=== PATIENT | male | born 1935 | race Caucasian/White ===

== ENCOUNTER 2018-06-25 14:35 | Inpatient (IN) ==
[2018-06-26] MEDS: Primidone 50 MG TABLET PO SCH (21:45)
[2018-06-26] MEDS: *HR* HYDROcodone/Acet 10/325 mg TABLET PO PRN (21:46)
[2018-06-27] MEDS: *HR* Enoxaparin 40 MG/0.4 ML SYRINGE SQ SCH ×2 (05:56→18:01)
[2018-06-27] MEDS: *HR* HYDROcodone/Acet 10/325 mg TABLET PO PRN ×3 (05:56→19:50)
[2018-06-27 07:06] LABS: Basophils % 0.6 %; Eosinophils # 0.5 K/mcL (0.0-0.6); Eosinophils % 6.8 %; Hematocrit 25.6 % (37.5-50.1); Hemoglobin 8.5 g/dL (12.9-16.9); Immature Granulocytes % 0.7 % (0-4); Lymphocytes % 13.6 %; Mean Corpuscular HGB Conc 33.2 g/dL (31.6-35.5); Mean Corpuscular Hemoglobin 33.5 pg (28.0-33.3); Mean Corpuscular Volume 100.8 fL (83.0-100.0); Monocytes # 0.8 K/mcL (0.0-1.3); Monocytes % 10.6 %; Neutrophils # 4.8 K/mcL (1.6-8.9); Platelet Count 132 K/mcL (140-400); Red Blood Count 2.54 M/mcL (4.19-5.50); Red Cell Distribution Width 17.1 % (11.5-14.5); Segmented Neutrophils % 67.7 %
[2018-06-27 07:07] LABS: INR 1.2; Prothrombin Time 13.4 Seconds (9.4-12.1)
[2018-06-27 07:16] LABS: Activated Partial Thrombo Time 32.8 Seconds (26.0-36.0)
[2018-06-27 07:27] LABS: BUN/Creatinine Ratio 21 (6-26); Blood Urea Nitrogen 21 mg/dL (8-23); Calcium 8.4 mg/dL (8.6-10.3); Carbon Dioxide 26 mEq/L (23-29); Chloride 103 mEq/L (98-107); Glucose 112 mg/dL (70-105); Osmolality,Calculated 280 (280-300); Potassium 4.2 mEq/L (3.5-5.1); Sodium 133 mEq/L (136-145); eGFR For African Americans > 60 (> 60); eGFR For Non-African Americans > 60 (> 60)
[2018-06-27] MEDS: ICAPS AREDS PO SCH ×2 (09:00→21:08)
[2018-06-27] MEDS: Multivit/Ca/Min/Fe/FA 1 TAB TABLET PO SCH (09:00)
--- NOTE | 2018-06-27 11:10 | Internal Med History&Physical ---
Date of Encounter: 06/27/18 Time of Encounter: 11:06 Assessment and Plan (1) Status post total hip replacement, right Current visit: Yes Status: Acute Patient has a right THR with surgical incision appears healthy and intact. No echymosis or erythema. Moderate amount of edema to hips and bilateral lower exremities. Progressing well with PT/OT. Pain well managed with current meds. Continue with current plan of care. (2) H/O aortic valve replacement Current visit: Yes Status: Chronic No acute issues. Patient does continue to have moderate amount of bilateral pedal edema. Denies any chest palpitations or discomforts. Denies any dyspnea. We will continue with current medications. Vital signs are stable. (3) Meniere disease Current visit: Yes Status: Chronic No acute issues. Patient denies any dizziness. Patient does have unsteady gait. We will continue with current medications. Qualifiers: Laterality: unspecified laterality Qualified Code(s): H81.09 - Meniere's disease, unspecified ear (4) Anemia Current visit: Yes Status: Chronic Hemoglobin is 8.5. We will continue to monitor with serial labs. Vital signs stable Qualifiers: Anemia type: unspecified type Qualified Code(s): D64.9 - Anemia, unspecified Internal Medicine - H&P: HPI Chief complaint: right hip replacement Admitted From: Intrahospital Transfer Plans for Post Hospital Care: Home History of present illness: Mr. Gandhi is a 83 year old male who was transfered from an [facility] hospital after having a right total hip replacement on 06/23/2018. Patient's surgical recovery at Hospital uneventful, except for issues with urinary retention. Patient experienced urinary retention and difficulty and having Muñiz catheter replaced. Urology was consulted and was able to place a Muñiz catheter which is to remain in place still patient does follow-up in office with urology after discharge. Patient was transferred to this facility for rehabilitation due to deconditioning secondary to surgery. Patient is also had a left total hip replacement in May. Patient currently denies any discomforts. Right hip surgical incision remains intact with dressing appearing dry. Moderate amount of edema noted to right hip and bilateral legs. No ecchymosis or erythema noted. Patient noted to be able to bear weight on right leg, but noted moderate instability of gait, require use of walker. Patient does have Hx of Menieres Disease. Patient states that current pain medications have been effective. Denies any shortness of breath or other discomforts. Past Med Surg Social Fam HX - Past Medical History Medical history: aortic aneurysm, arthritis, atrial fibrillation, DVT, osteoporosis, other Additional medical history: menieres disease, mitral valve stenosis, ascending aortic aneurysm, mitral valve replacement. boderline macular degeneration/ glaucoma Psychiatric history: anxiety - Past Surgical History Surgical History: herniorrhaphy, knee replacement Additional surgical history: BOWEL RESECTION, LHC, AAA repair, valve replacement 10/18. PROSTATE SURGERY, Carpal Tunnel Bilateral, bilat knee replacements, bilat knee replacement, bilateral hips - Social History Smoking Status: Never smoker Smokeless Tobacco Status: No Alcohol use: occasionally Drug use: none - Family History Daughter Adopted: No Living Status: Still Living Internal Medicine - H&P: Meds Multivitamin [Multivitamins] 1 cap PO DAILY 08/14/17 [History] Primidone [Mysoline] 50 mg PO HS 08/14/17 [History] Cholecalciferol (D-3) [Vitamin D] 1,000 unit PO QPM 05/05/18 [History] Citalopram [CeleXA] 20 mg PO HS 05/05/18 [History] Metoprolol [Lopressor] 25 mg PO BID 05/05/18 [History] Tamsulosin [Flomax] 0.4 mg PO DAILY 05/05/18 [History] Vit A/Vit C/Vit E/Zinc/Copper [Icaps Areds Formula Dr Tablet] 1 tab PO BID 05/05 [History] Enoxaparin [Lovenox] 40 mg SQ Q12HR 10 Days #20 syringe 06/22/18 [Rx] HYDROcodone/Acet 5/325 mg [[place] 5-325 mg] 1 tab PO Q6H PRN 7 Days #28 tab 06/22 [Rx] Ferrous Sulfate [Iron] 325 mg PO DAILY 06/23/18 [History] Warfarin [Coumadin] 3.5 mg PO MOTUWEFRSA 06/23/18 [History] Warfarin [Coumadin] 5 mg PO SUTH 06/23/18 [History] 3 Allergy/AdvReac Type Severity Reaction Status Date / Time acetaminophen [From Percocet] AdvReac Irritable Verified 06/23/18 10:27 meperidine [From Demerol] AdvReac Nausea Verified 06/23/18 10:27 Oxycodone [From Percocet] AdvReac Irritable Verified 06/23/18 10:27 All Systems PM: A 10-system review of systems was performed and is negative for pertinent findings except as documented above in the HPI. - Constitutional Constitutional: no chills, no fever(s), no night sweats - EENT Eyes: no change in vision, no discharge, no pain, no photophobia Ears: no ear discharge, no ear pain, no tinnitus Nose, mouth and throat: no dysphagia, no nasal discharge, no neck pain, no sore throat - Cardiovascular Cardiovascular ROS IM: no chest pain, no diaphoresis, no dyspnea, no lightheadedness, no palpitations, no syncope - Respiratory Respiratory: no cough, no dyspnea, no wheezing, no excessive phlegm production - Gastrointestinal Gastrointestinal: no abdominal pain, no diarrhea, no hematemesis, no hematochezia, no melena, no nausea, no vomiting - Musculoskeletal Musculoskeletal ROS IM: no numbness, no tingling - Integumentary Integumentary IM: no rash, no unusual bruising - Neurological Neurological ROS: no confusion, no convulsions, no focal weakness, no numbness, no tingling, no tremor(s) - Hematologic/Lymphatic Hematologic/Lymphatic: no easy bruising - Constitutional Vitals: Temp Pulse Resp BP Pulse Ox 97.6 F 74 18 109/61 95 06/27/18 06:26 06/27/18 06:26 06/27/18 06:26 06/27/18 06:26 06/27/18 06:26 General appearance: Present: A&O X 3, pleasant - Head Head exam: Present: atraumatic, normocephalic - Eye Eye exam: Present: PERRL, conjuntiva pink, sclera anicteric Pupils: Present: PERRL - Neck Neck exam general surgery: Present: supple, trachea midline. Absent: lymphadenopathy - Respiratory Respiratory exam: Present: CTAB. Absent: accessory muscle use, rales, rhonchi, wheezes Additional comments: Lungs are diminished to bilateral bases, but otherwise clear. Respiratory effort appears relaxed - Cardiovascular Cardiovascular exam: Present: RRR, +S1, +S2. Absent: diastolic murmur, gallop, rubs, systolic murmur - GI/Abdominal GI/Abdominal exam: Present: normal bowel sounds, soft, no peritoneal signs. Absent: distended, tenderness - Additional comments: Muñiz catheter in place with clear yellow urine received. - Extremities Exam Extremities exam: Present: warm, radial pulses palpable and symmetrical. Absent : calf tenderness, cyanotic, pedal edema Additional comments: Right hip surgical incision is dry and intact. Alert amount of edema to bilateral hips and lower extremities. No ecchymosis or erythema noted to surgical site - Neurological Exam Neurological exam: Present: CN II-XII intact, oriented X3, no focal deficits. Absent: pronater drift, facial droop, speech deficit - Skin Skin exam: Present: dry, intact Internal Med - H&P Results - Labs CBC & Chem 7: 06/27/18 06:47 06/27/18 06:47 Labs: Short CBC 06/27/18 Range/Units 06:47 WBC 7.1 (4.3-11.1) K/mcL Hgb 8.5 L (12.9-16.9) g/dL Hct 25.6 L (37.5-50.1) % Plt Count 132 L (140-400) K/mcL Neutrophils # 4.8 (1.6-8.9) K/mcL BMP 06/27/18 06:47 Sodium 133 L Potassium 4.2 Chloride 103 Carbon Dioxide 26 BUN 21 Creatinine 1.01 Glucose 112 H Calcium 8.4 L - VTE Documentation of Mechanical Device: Graduated compression elastic hosiery
[2018-06-27] MEDS ORDERED: Warfarin perPT PO PRN (14:18)
[2018-06-27] MEDS ORDERED: *HR* Warfarin 5 MG TABLET PO ONE (18:00)
[2018-06-27] MEDS ORDERED: *HR* Warfarin 1 MG TABLET PO SCH (18:00)
[2018-06-27] MEDS: Cholecalciferol (D-3) 1,000 UNIT TABLET PO SCH (18:01)
[2018-06-27] MEDS: Primidone 50 MG TABLET PO SCH (19:50)
[2018-06-28] MEDS: *HR* HYDROcodone/Acet 10/325 mg TABLET PO PRN ×3 (06:05→18:00)
[2018-06-28] MEDS: *HR* Enoxaparin 40 MG/0.4 ML SYRINGE SQ SCH ×2 (06:05→18:00)
[2018-06-28] MEDS: Multivit/Ca/Min/Fe/FA 1 TAB TABLET PO SCH (07:40)
[2018-06-28] MEDS: ICAPS AREDS PO SCH ×2 (07:41→21:10)
[2018-06-28 09:55] LABS: INR 1.3; Prothrombin Time 14.4 Seconds (9.4-12.1)
--- NOTE | 2018-06-28 15:21 | Internal Med Progress Note ---
Date of Encounter: 06/28/18 Time of Encounter: 15:19 - Assessment and plan (1) Status post total hip replacement, right Current Visit: Yes Status: Acute Assessment and plan: PT/OT Mild anxiety and apprehension regarding using the hip Discussed at length with daughter and the patient to continue with PT OT (2) Thrombocytopenia Current Visit: Yes Status: Acute Assessment and plan: Acute versus chronic; unable to compare with the prior results Patient currently on Lovenox 40 mg subcutaneous every 12 hours as well as Coumadin We will monitor tomorrow with another CBC (3) Hyponatremia Current Visit: Yes Status: Acute Assessment and plan: Mild at 133; with normal osmolality We will monitor tomorrow (4) Anemia Current Visit: Yes Status: Chronic Assessment and plan: We will monitor tomorrow, most likely a combined iron deficiency and anemia of acute loss Continue iron Qualifiers: Anemia type: unspecified type Qualified Code(s): D64.9 - Anemia, unspecified (5) Incomplete emptying of bladder Current Visit: No Status: Acute Assessment and plan: Has been at least 2 days of indwelling catheter; patient is afebrile Per daughter; usually they leave the Muñiz at least 3-4 days before removing due to obstructive uropathy We will attempt to decrease narcotics, to decrease obstructive uropathy as well ; currently on [place] 10 every 4 hours for acute pain (6) Afib Current Visit: No Status: Chronic Assessment and plan: Patient currently on Lovenox to bridge with a subtherapeutic INR Continue Coumadin and monitoring INRs Qualifiers: Atrial fibrillation type: unspecified Qualified Code(s): I48.91 - Unspecified atrial fibrillation - Time Spent With Patient 25 - 35 minutes - Subjective Interval history: Per nursing: -Patient has changes on lung examination, most likely crackles Per patient: Minimal pain, sitting in a chair comfortable. Wearing nice clothing. 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 Patient denied any on review of systems - Constitutional Vitals: Temp Pulse Resp BP Pulse Ox 98.2 F 74 16 111/67 93 06/28/18 08:17 06/28/18 08:17 06/28/18 08:17 06/28/18 08:17 06/28/18 08:17 General appearance: Present: A&O X 3, pleasant Exam: Sitting on a wheelchair - Head Head exam: Present: atraumatic - Eye Eye exam: Present: EOMI. Absent: conjunctival injection - Neck Neck exam general surgery: Present: full ROM - Respiratory Respiratory exam: Present: rales. Absent: chest wall tenderness, decreased breath sounds, CTAB Additional comments: Patient appears to have rails on the basis of the right lung, but clear to auscultation left lung - Cardiovascular Cardiovascular exam: Present: RRR, +S1, +S2, systolic murmur Additional comments: Patient may suffer from a 3/6 systolic murmur - GI/Abdominal GI/Abdominal exam: Present: soft. Absent: diminished bowel sounds, firm, guarding, hepatomegaly - Extremities Exam Extremities exam: Absent: calf tenderness Additional comments: Patient has edema, unknown type giving compression stocking Upper and lower extremity strength is 5/5 Hip strength was not evaluated today - Neurological Exam Neurological exam: Present: oriented X3. Absent: speech deficit - Skin Skin exam: Present: dry, warm. Absent: abrasion, cyanosis Internal Medicine: Result - Labs CBC & Chem 7: 06/27/18 06:47 06/27/18 06:47 - ABG Interpretation ABG results: PT/INR, D-dimer PT 14.4 Seconds (9.4-12.1) H 06/28/18 09:30 - VTE Documentation of Mechanical Device: Graduated compression elastic hosiery Consult Discharge Plan - Plan Referrals: Toña Wright DO [Primary Care Provider] -
[2018-06-28] MEDS ORDERED: *HR* Warfarin 5 MG TABLET PO ONE (18:00)
[2018-06-28] MEDS: Cholecalciferol (D-3) 1,000 UNIT TABLET PO SCH (18:00)
[2018-06-28] MEDS: Primidone 50 MG TABLET PO SCH (21:11)
[2018-06-29] MEDS: *HR* HYDROcodone/Acet 10/325 mg TABLET PO PRN ×4 (04:02→20:29)
[2018-06-29] MEDS: *HR* Enoxaparin 40 MG/0.4 ML SYRINGE SQ SCH ×2 (04:03→17:35)
[2018-06-29 05:16] LABS: Hematocrit 24.5 % (37.5-50.1); Hemoglobin 8.2 g/dL (12.9-16.9); Mean Corpuscular HGB Conc 33.5 g/dL (31.6-35.5); Mean Corpuscular Hemoglobin 33.7 pg (28.0-33.3); Mean Corpuscular Volume 100.8 fL (83.0-100.0); Mean Platelet Volume 9.8 fL (9.4-12.4); Platelet Count 152 K/mcL (140-400); Red Blood Count 2.43 M/mcL (4.19-5.50); Red Cell Distribution Width 16.5 % (11.5-14.5)
[2018-06-29 05:18] LABS: INR 1.4; Prothrombin Time 15.8 Seconds (9.4-12.1)
[2018-06-29 05:31] LABS: BUN/Creatinine Ratio 21 (6-26); Blood Urea Nitrogen 18 mg/dL (8-23); Calcium 8.5 mg/dL (8.6-10.3); Carbon Dioxide 28 mEq/L (23-29); Chloride 102 mEq/L (98-107); Glucose 111 mg/dL (70-105); Osmolality,Calculated 281 (280-300); Potassium 4.2 mEq/L (3.5-5.1); Sodium 134 mEq/L (136-145); eGFR For African Americans > 60 (> 60); eGFR For Non-African Americans > 60 (> 60)
[2018-06-29] MEDS: Multivit/Ca/Min/Fe/FA 1 TAB TABLET PO SCH (08:32)
[2018-06-29] MEDS: ICAPS AREDS PO SCH ×2 (08:41→20:32)
--- NOTE | 2018-06-29 13:39 | Internal Med Progress Note ---
Date of Encounter: 06/29/18 Time of Encounter: 13:37 - Assessment and plan (1) Status post total hip replacement, right Current Visit: Yes Status: Acute Assessment and plan: PT/OT Mild anxiety and apprehension regarding using the hip (2) Thrombocytopenia Current Visit: Yes Status: Acute Assessment and plan: Acute versus chronic; unable to compare with the prior results; possibly reactive Would advise outpatient follow-up Patient currently on Lovenox 40 mg subcutaneous every 12 hours as well as Coumadin Continue frequent monitoring every other day (3) Hyponatremia Current Visit: Yes Status: Acute Assessment and plan: Normotonic hyponatremia; improved from 133-134 Continue to monitor; patient might be on some medication that can cause this including SSRIs (4) Anemia Current Visit: Yes Status: Chronic Assessment and plan: Most likely combined type of anemia; macrocytic Qualifiers: Anemia type: unspecified type Qualified Code(s): D64.9 - Anemia, unspecified (5) Incomplete emptying of bladder Current Visit: No Status: Acute Assessment and plan: Muñiz daily 3 Per daughter; usually they leave the Muñiz at least 3-4 days before removing due to obstructive uropathy We will attempt to decrease narcotics, to decrease obstructive uropathy as well ; currently on [place] 10 every 4 hours for acute pain (6) Afib Current Visit: No Status: Chronic Assessment and plan: Patient currently on Lovenox to bridge with a subtherapeutic INR Continue Coumadin and monitoring INRs Qualifiers: Atrial fibrillation type: unspecified Qualified Code(s): I48.91 - Unspecified atrial fibrillation - Time Spent With Patient 25 - 35 minutes - Subjective Interval history: Per nursing: -No acute events overnight Per patient: Patient continued to have a Muñiz, does not report any issues on review of systems Sitting comfortably in bed with next to bed - Constitutional Vitals: Temp Pulse Resp BP Pulse Ox 97.8 F 78 15 114/65 98 06/29/18 07:16 06/29/18 07:16 06/29/18 07:16 06/29/18 07:16 06/29/18 07:16 General appearance: Present: A&O X 3, pleasant - ENT ENT exam: Present: mucous membranes moist - Neck Neck exam general surgery: Present: full ROM - Respiratory Respiratory exam: Present: CTAB. Absent: rhonchi, stridor - Cardiovascular Cardiovascular exam: Present: RRR, +S1, +S2. Absent: rubs - GI/Abdominal GI/Abdominal exam: Present: soft. Absent: firm, guarding - Extremities Exam Extremities exam: Present: normal capillary refill, pedal edema, warm. Absent: tenderness Additional comments: Bilateral chronic changes, +1 to +2 pitting edema bilaterally below the knee and above the ankle - Neurological Exam Neurological exam: Present: alert, no focal deficits. Absent: altered - Psychiatric Psychiatric exam: Present: normal affect, normal mood - Skin Skin exam: Absent: abrasion, cyanosis, diaphoretic, rash Internal Medicine: Result - Labs CBC & Chem 7: 06/29/18 04:07 06/29/18 04:07 Labs: Short CBC 06/29/18 Range/Units 04:07 WBC 6.5 (4.3-11.1) K/mcL Hgb 8.2 L (12.9-16.9) g/dL Hct 24.5 L (37.5-50.1) % Plt Count 152 (140-400) K/mcL BMP 06/29/18 04:07 Sodium 134 L Potassium 4.2 Chloride 102 Carbon Dioxide 28 BUN 18 Creatinine 0.87 Glucose 111 H Calcium 8.5 L - ABG Interpretation ABG results: PT/INR, D-dimer PT 15.8 Seconds (9.4-12.1) H 06/29/18 04:07 - Impressions Impressions Chest X-Ray 06/28/18 15:18 IMPRESSION: 1. No acute cardiopulmonary abnormality. 2. Findings of emphysema and chronic obstructive physiology. D/ / Jerome Hopper / Jerome Hopper Interpreting Provider: Jerome Hopper - VTE Documentation of Mechanical Device: Graduated compression elastic hosiery Consult Discharge Plan - Plan Referrals: Toña Wright DO [Primary Care Provider] -
[2018-06-29] MEDS: Cholecalciferol (D-3) 1,000 UNIT TABLET PO SCH (17:35)
[2018-06-29] MEDS ORDERED: *HR* Warfarin 2.5 MG TABLET PO SCH (18:00)
[2018-06-29] MEDS ORDERED: *HR* Warfarin 5 MG TABLET PO ONE (18:00)
[2018-06-29] MEDS: Primidone 50 MG TABLET PO SCH (20:30)
[2018-06-30] MEDS: *HR* Enoxaparin 40 MG/0.4 ML SYRINGE SQ SCH ×2 (05:06→16:49)
[2018-06-30] MEDS: *HR* HYDROcodone/Acet 10/325 mg TABLET PO PRN ×3 (05:07→21:44)
[2018-06-30 07:10] LABS: Basophils % 0.4 %; Eosinophils # 0.5 K/mcL (0.0-0.6); Eosinophils % 6.7 %; Hematocrit 24.3 % (37.5-50.1); Hemoglobin 8.1 g/dL (12.9-16.9); Immature Granulocytes % 0.4 % (0-4); Lymphocytes # 0.9 K/mcL (0.6-4.6); Lymphocytes % 11.9 %; Mean Corpuscular HGB Conc 33.3 g/dL (31.6-35.5); Mean Corpuscular Volume 102.1 fL (83.0-100.0); Mean Platelet Volume 9.2 fL (9.4-12.4); Monocytes # 0.8 K/mcL (0.0-1.3); Platelet Count 166 K/mcL (140-400); Red Blood Count 2.38 M/mcL (4.19-5.50); Red Cell Distribution Width 16.5 % (11.5-14.5); Segmented Neutrophils % 69.6 %
[2018-06-30 07:12] LABS: INR 1.6; Prothrombin Time 18.1 Seconds (9.4-12.1)
[2018-06-30 07:20] LABS: BUN/Creatinine Ratio 21 (6-26); Blood Urea Nitrogen 19 mg/dL (8-23); Calcium 8.3 mg/dL (8.6-10.3); Carbon Dioxide 27 mEq/L (23-29); Chloride 104 mEq/L (98-107); Glucose 107 mg/dL (70-105); Osmolality,Calculated 281 (280-300); Potassium 4.1 mEq/L (3.5-5.1); Sodium 134 mEq/L (136-145); eGFR For African Americans > 60 (> 60); eGFR For Non-African Americans > 60 (> 60)
[2018-06-30] MEDS: Multivit/Ca/Min/Fe/FA 1 TAB TABLET PO SCH (08:26)
[2018-06-30] MEDS: ICAPS AREDS PO SCH ×2 (08:27→21:44)
--- NOTE | 2018-06-30 13:30 | Internal Med Progress Note ---
Date of Encounter: 06/30/18 Time of Encounter: 13:28 - Assessment and plan (1) Status post total hip replacement, right Current Visit: Yes Status: Acute Assessment and plan: Continue PT and OT. Will follow progress. Continue [place] as needed for pain. Follow up with ortho as scheduled. (2) Anemia Current Visit: Yes Status: Chronic Assessment and plan: Stable. Hemoglobin 8.1 this morning. Will continue to monitor Qualifiers: Anemia type: unspecified type Qualified Code(s): D64.9 - Anemia, unspecified (3) Incomplete emptying of bladder Current Visit: Yes Status: Acute Assessment and plan: Continue Muñiz catheter. Will discuss discontinuing (4) Afib Current Visit: Yes Status: Chronic Assessment and plan: Rate and rhythm controlled. Continue Coumadin. Monitor INR Qualifiers: Atrial fibrillation type: unspecified Qualified Code(s): I48.91 - Unspecified atrial fibrillation - Time Spent With Patient 25 - 35 minutes - Subjective Interval history: Patient sitting on side of the bed participating with therapy. Ambulated 60 feet with Walker with physical therapy. States bowels are moving as normal. Blood pressure 94/57. Metoprolol held this morning. Will monitor. Muñiz catheter in place and draining well. This is day 4. Daughter states that he has had difficulty emptying bladder in the past. States pain is controlled with [place]. Maintaining appetite and hydration. Bowels moving as normal. - Constitutional Vitals: Temp Pulse Resp BP Pulse Ox 98.8 F 74 16 117/82 94 06/30/18 07:27 06/30/18 07:27 06/30/18 07:27 06/30/18 10:42 06/30/18 07:27 General appearance: Present: A&O X 3, pleasant - Head Head exam: Present: atraumatic, normocephalic - Eye Eye exam: Present: PERRL, conjuntiva pink, sclera anicteric Pupils: Present: PERRL - Neck Neck exam general surgery: Present: supple, trachea midline. Absent: lymphadenopathy - Respiratory Respiratory exam: Present: CTAB. Absent: accessory muscle use, rales, rhonchi, wheezes - Cardiovascular Cardiovascular exam: Present: irregular rhythm, +S1, +S2. Absent: diastolic murmur, gallop, rubs, systolic murmur - GI/Abdominal GI/Abdominal exam: Present: normal bowel sounds, soft, no peritoneal signs. Absent: distended, tenderness - Extremities Exam Extremities exam: Present: warm, radial pulses palpable and symmetrical. Absent : calf tenderness, cyanotic, pedal edema Additional comments: Wearing [place] hose. Slight edema right lower extremity - [place] Comments: Right hip incision, dressing dry and intact. No drainage. - Neurological Exam Neurological exam: Present: CN II-XII intact, oriented X3, no focal deficits. Absent: pronater drift, facial droop, speech deficit - Skin Skin exam: Present: dry, intact Internal Medicine: Result - Labs CBC & Chem 7: 06/30/18 06:25 06/30/18 06:25 Labs: Short CBC 06/30/18 Range/Units 06:25 WBC 7.2 (4.3-11.1) K/mcL Hgb 8.1 L (12.9-16.9) g/dL Hct 24.3 L (37.5-50.1) % Plt Count 166 (140-400) K/mcL Neutrophils # 5.0 (1.6-8.9) K/mcL BMP 06/30/18 06:25 Sodium 134 L Potassium 4.1 Chloride 104 Carbon Dioxide 27 BUN 19 Creatinine 0.89 Glucose 107 H Calcium 8.3 L - ABG Interpretation ABG results: PT/INR, D-dimer PT 18.1 Seconds (9.4-12.1) H 06/30/18 06:25 - VTE Documentation of Mechanical Device: Graduated compression elastic hosiery Consult Discharge Plan - Plan Referrals: Toña Wright DO [Primary Care Provider] -
[2018-06-30] MEDS: Cholecalciferol (D-3) 1,000 UNIT TABLET PO SCH (16:49)
[2018-06-30] MEDS ORDERED: *HR* Warfarin 2.5 MG TABLET PO ONE (18:00)
[2018-06-30] MEDS ORDERED: *HR* Warfarin 2 MG TABLET PO ONE (18:00)
[2018-06-30] MEDS ORDERED: *HR* Warfarin 1 MG TABLET PO ONE ×2 (18:00)
[2018-06-30] MEDS: Primidone 50 MG TABLET PO SCH (21:43)
[2018-07-01] MEDS: *HR* Enoxaparin 40 MG/0.4 ML SYRINGE SQ SCH ×2 (05:27→17:23)
[2018-07-01] MEDS: *HR* HYDROcodone/Acet 10/325 mg TABLET PO PRN ×4 (05:28→21:33)
[2018-07-01 05:58] LABS: INR 1.7; Prothrombin Time 19.6 Seconds (9.4-12.1)
[2018-07-01] MEDS: Multivit/Ca/Min/Fe/FA 1 TAB TABLET PO SCH (09:57)
[2018-07-01] MEDS: ICAPS AREDS PO SCH ×2 (11:02→19:52)
--- NOTE | 2018-07-01 12:05 | Internal Med Progress Note ---
Date of Encounter: 07/01/18 Time of Encounter: 12:03 - Assessment and plan (1) Status post total hip replacement, right Current Visit: Yes Status: Acute Assessment and plan: No acute issues. Patient continues to progress with PT/OT. Pain well managed with current meds. Surgical incision appears healthy and healing well. Will continue on current plan of care. (2) H/O aortic valve replacement Current Visit: Yes Status: Chronic Assessment and plan: No acute issues. Continues on coumadin with lovenox bridge. (3) Meniere disease Current Visit: Yes Status: Chronic Assessment and plan: Patient denies any dizziness or symptoms. Will continue on current plan of care. Qualifiers: Laterality: unspecified laterality Qualified Code(s): H81.09 - Meniere's disease, unspecified ear (4) Incomplete emptying of bladder Current Visit: Yes Status: Acute Assessment and plan: Patient continues with crawley cath due to urine retention after surgery. Will continue on crawley cath until seen by Urology. - Time Spent With Patient less than 15 minutes - Subjective Interval history: Patient appears relaxed and currently denies any discomforts or dyspnea. States that his therapy has been progressing well. Continues with crawley cath in place per Urology with f/u visits planned for further evaluation and treatment. - Constitutional Vitals: Temp Pulse Resp BP Pulse Ox 98.8 F 71 16 97/60 93 07/01/18 07:00 07/01/18 07:00 07/01/18 07:00 07/01/18 07:00 07/01/18 07:00 General appearance: Present: A&O X 3, pleasant - Head Head exam: Present: atraumatic, normocephalic - Eye Eye exam: Present: PERRL, conjuntiva pink, sclera anicteric Pupils: Present: PERRL - Neck Neck exam general surgery: Present: supple, trachea midline. Absent: lymphadenopathy - Respiratory Respiratory exam: Present: CTAB. Absent: accessory muscle use, rales, rhonchi, wheezes - Cardiovascular Cardiovascular exam: Present: RRR, +S1, +S2. Absent: diastolic murmur, gallop, rubs, systolic murmur - GI/Abdominal GI/Abdominal exam: Present: normal bowel sounds, soft, no peritoneal signs. Absent: distended, tenderness - Extremities Exam Extremities exam: Present: warm, radial pulses palpable and symmetrical. Absent : calf tenderness, cyanotic, pedal edema Additional comments: Right hip incision appears intact and healthy. No ecchymosis or erythema noted. - Neurological Exam Neurological exam: Present: CN II-XII intact, oriented X3, no focal deficits. Absent: pronater drift, facial droop, speech deficit - Skin Skin exam: Present: dry, intact Internal Medicine: Result - Labs CBC & Chem 7: 06/30/18 06:25 06/30/18 06:25 - ABG Interpretation ABG results: PT/INR, D-dimer PT 19.6 Seconds (9.4-12.1) H 07/01/18 05:40 - VTE Documentation of Mechanical Device: Graduated compression elastic hosiery Consult Discharge Plan - Plan Referrals: Toña Wright DO [Primary Care Provider] -
--- NOTE | 2018-07-01 14:01 | Event Note ---
Date of Encounter: 07/01/18 Time of Encounter: 13:54 Patient with c/o increased edema to the right lower leg, stating that he has had pain to the right calf. No tenderness noted on palpation, but states soreness during ROM. Noted moderate edema to the right entire leg. Will obtain a venous doppler of entire right leg. Patient continues on lovenox bridging until coumadin INR is therapeutic. Last INR 1.7 and being managed per pharmacy. Patient instructed to elevate leg. Continue with use of compression stockings. Pt's states patient has a remote Hx of DVT years ago when he had a TKR. Patient denies any other discomforts or dyspnea.
[2018-07-01] MEDS: Cholecalciferol (D-3) 1,000 UNIT TABLET PO SCH (17:22)
[2018-07-01] MEDS ORDERED: *HR* Warfarin 5 MG TABLET PO ONE (18:00)
[2018-07-01] MEDS: Primidone 50 MG TABLET PO SCH (19:52)
[2018-07-02] MEDS: *HR* Enoxaparin 40 MG/0.4 ML SYRINGE SQ SCH ×2 (04:49→16:37)
[2018-07-02] MEDS: *HR* HYDROcodone/Acet 10/325 mg TABLET PO PRN ×4 (04:50→20:43)
[2018-07-02 05:57] LABS: Hematocrit 25.3 % (37.5-50.1); Hemoglobin 8.2 g/dL (12.9-16.9); Mean Corpuscular HGB Conc 32.4 g/dL (31.6-35.5); Mean Corpuscular Hemoglobin 33.2 pg (28.0-33.3); Mean Corpuscular Volume 102.4 fL (83.0-100.0); Mean Platelet Volume 8.6 fL (9.4-12.4); Platelet Count 196 K/mcL (140-400); Red Blood Count 2.47 M/mcL (4.19-5.50); Red Cell Distribution Width 16.6 % (11.5-14.5)
[2018-07-02 06:01] LABS: INR 1.8; Prothrombin Time 19.9 Seconds (9.4-12.1)
[2018-07-02 06:14] LABS: Alanine Aminotransferase 23 Units/L (7-52); Albumin 2.6 g/dL (3.5-5.7); Albumin/Globulin Ratio 1.2 (1.1-2.2); Alkaline Phosphatase 170 Units/L (34-104); Aspartate Amino Transferase 25 Units/L (13-39); BUN/Creatinine Ratio 15 (6-26); Bilirubin,Total 0.5 mg/dL (0.3-1.0); Blood Urea Nitrogen 13 mg/dL (8-23); Calcium 8.4 mg/dL (8.6-10.3); Carbon Dioxide 27 mEq/L (23-29); Chloride 105 mEq/L (98-107); Globulin 2.2 g/dL (2.4-3.5); Glucose 94 mg/dL (70-105); Magnesium 2.1 mg/dL (1.6-2.6); Osmolality,Calculated 282 (280-300); Potassium 4.1 mEq/L (3.5-5.1); Sodium 136 mEq/L (136-145); Total Protein 4.8 g/dL (6.4-8.9); eGFR For African Americans > 60 (> 60); eGFR For Non-African Americans > 60 (> 60)
[2018-07-02] MEDS: ICAPS AREDS PO SCH ×2 (07:31→20:14)
[2018-07-02] MEDS: Multivit/Ca/Min/Fe/FA 1 TAB TABLET PO SCH (07:31)
--- NOTE | 2018-07-02 11:57 | Internal Med Progress Note ---
Date of Encounter: 07/02/18 Time of Encounter: 11:55 - Assessment and plan (1) Status post total hip replacement, right Current Visit: Yes Status: Acute Assessment and plan: Continue PT and OT. Will follow progress. Continue Chandler as needed for pain. Follow up with ortho as scheduled. (2) Anemia Current Visit: Yes Status: Chronic Assessment and plan: Stable. Hemoglobin 8.2 this morning. Will continue to monitor Qualifiers: Anemia type: unspecified type Qualified Code(s): D64.9 - Anemia, unspecified (3) Incomplete emptying of bladder Current Visit: Yes Status: Acute Assessment and plan: Continue Muñiz catheter. Will discuss discontinuing (4) Afib Current Visit: Yes Status: Chronic Assessment and plan: Rate and rhythm controlled. Continue Coumadin. Monitor INR Qualifiers: Atrial fibrillation type: unspecified Qualified Code(s): I48.91 - Unspecified atrial fibrillation (5) Edema of lower extremity Current Visit: Yes Status: Acute Assessment and plan: doppler pending, if negative, will discuss diuretic. - Time Spent With Patient less than 15 minutes - Subjective Interval history: Ambulating with walker with therapy. States bowels are moving as normal. Muñiz catheter in place and draining well. States pain is controlled with Chandler. Maintaining appetite and hydration. Bowels moving as normal. c/o bilat LE edema. doppler pending. states he has had a DVT in the past and he was also on lasix in the past. - Constitutional Vitals: Temp Pulse Resp BP Pulse Ox 98.7 F 66 16 121/62 95 07/02/18 07:00 07/02/18 07:00 07/02/18 07:00 07/02/18 07:00 07/02/18 07:00 General appearance: Present: A&O X 3, pleasant, no acute distress, answers questions appropriately - Head Head exam: Present: atraumatic, normocephalic - Eye Eye exam: Present: PERRL, conjuntiva pink, sclera anicteric Pupils: Present: PERRL - Neck Neck exam general surgery: Present: supple, trachea midline. Absent: lymphadenopathy - Respiratory Respiratory exam: Present: CTAB. Absent: accessory muscle use, rales, rhonchi, wheezes - Cardiovascular Cardiovascular exam: Present: irregular rhythm, +S1, +S2. Absent: diastolic murmur, gallop, rubs, systolic murmur - GI/Abdominal GI/Abdominal exam: Present: normal bowel sounds, soft, no peritoneal signs. Absent: distended, tenderness - Extremities Exam Extremities exam: Present: pedal edema, warm, radial pulses palpable and symmetrical. Absent: calf tenderness, cyanotic Additional comments: bilat LE 2 + pitting edema. - Incison Comments: tiht hip incision, drsg dry and intact. - Neurological Exam Neurological exam: Present: CN II-XII intact, oriented X3, no focal deficits. Absent: pronater drift, facial droop, speech deficit - Skin Skin exam: Present: dry, intact Internal Medicine: Result - Labs CBC & Chem 7: 07/02/18 05:45 07/02/18 05:45 Labs: Short CBC 07/02/18 Range/Units 05:45 WBC 6.7 (4.3-11.1) K/mcL Hgb 8.2 L (12.9-16.9) g/dL Hct 25.3 L (37.5-50.1) % Plt Count 196 (140-400) K/mcL BMP 07/02/18 05:45 Sodium 136 Potassium 4.1 Chloride 105 Carbon Dioxide 27 BUN 13 Creatinine 0.85 Glucose 94 Calcium 8.4 L Liver Function 07/02/18 Range/Units 05:45 Total Bilirubin 0.5 (0.3-1.0) mg/dL AST 25 (13-39) Units/L ALT 23 (7-52) Units/L Alkaline Phosphatase 170 H (34-104) Units/L Albumin 2.6 L (3.5-5.7) g/dL - ABG Interpretation ABG results: PT/INR, D-dimer PT 19.9 Seconds (9.4-12.1) H 07/02/18 05:45 - VTE Documentation of Mechanical Device: Graduated compression elastic hosiery Consult Discharge Plan - Plan Referrals: Toña Wright DO [Primary Care Provider] -
[2018-07-02] MEDS: Furosemide 40 MG TABLET PO SCH (14:18)
[2018-07-02] MEDS: Cholecalciferol (D-3) 1,000 UNIT TABLET PO SCH (16:37)
[2018-07-02] MEDS ORDERED: *HR* Warfarin 5 MG TABLET PO ONE (18:00)
[2018-07-02] MEDS: Primidone 50 MG TABLET PO SCH (20:13)
[2018-07-03] MEDS: *HR* Enoxaparin 40 MG/0.4 ML SYRINGE SQ SCH ×2 (05:02→17:01)
[2018-07-03] MEDS: *HR* HYDROcodone/Acet 10/325 mg TABLET PO PRN ×4 (05:06→21:13)
[2018-07-03 05:36] LABS: INR 1.8; Prothrombin Time 20.7 Seconds (9.4-12.1)
[2018-07-03 05:47] LABS: BUN/Creatinine Ratio 19 (6-26); Blood Urea Nitrogen 19 mg/dL (8-23); Calcium 8.5 mg/dL (8.6-10.3); Carbon Dioxide 26 mEq/L (23-29); Chloride 103 mEq/L (98-107); Glucose 106 mg/dL (70-105); Magnesium 2.3 mg/dL (1.6-2.6); Osmolality,Calculated 285 (280-300); Potassium 4.2 mEq/L (3.5-5.1); Sodium 136 mEq/L (136-145); eGFR For African Americans > 60 (> 60); eGFR For Non-African Americans > 60 (> 60)
[2018-07-03] MEDS: Furosemide 40 MG TABLET PO SCH (07:24)
[2018-07-03] MEDS: Multivit/Ca/Min/Fe/FA 1 TAB TABLET PO SCH (07:25)
[2018-07-03] MEDS: ICAPS AREDS PO SCH ×2 (07:25→21:14)
--- NOTE | 2018-07-03 12:00 | Internal Med Progress Note ---
Date of Encounter: 07/03/18 Time of Encounter: 11:57 - Assessment and plan (1) Chronic venous hypertension with ulcer and inflammation involving left side Current Visit: No Status: Chronic Assessment and plan: We will resume Lasix dose and he will need careful follow-up to make sure that he does not again developed hypokalemia, hypomagnesemia, or prerenal azotemia. (2) H/O aortic valve replacement Current Visit: Yes Status: Chronic Assessment and plan: See comments above about Coumadin and anticoagulation. (3) Decreased GFR Current Visit: No Status: Acute Assessment and plan: As commented above, he will need careful observation regarding this, especially now with return to Lasix. (4) Anemia Current Visit: Yes Status: Chronic Assessment and plan: He is clinically stable. This will need to be followed carefully. Qualifiers: Anemia type: unspecified type Qualified Code(s): D64.9 - Anemia, unspecified (5) Incomplete emptying of bladder Current Visit: Yes Status: Acute Assessment and plan: Muñiz catheter is to remain in place until time of urology follow-up. As above , urinalysis requested by orthopedic service. (6) Afib Current Visit: Yes Status: Chronic Assessment and plan: See above regarding Coumadin dosing. Qualifiers: Atrial fibrillation type: unspecified Qualified Code(s): I48.91 - Unspecified atrial fibrillation - Subjective Interval history: Patient was seen by oral flow PA this morning. Urinalysis was requested by them. He is also to be followed as planned, previously. Patient has no issues but is very concerned about his edema. We discussed his prior treatment with Lasix at 80 mg twice a day. This caused renal insufficiency so he will need close monitoring. He is to have a primary care follow-up next Saturday, and other words 5 days after discharge. His INR remains 1.8 and we discussed this. For now, he will be discharged on Coumadin 5 mg. Hopefully, he will have an elevated pro time to over 2 tomorrow. If not, he will need to go on Lovenox. Patient has no complaint of chest discomfort, dyspnea, orthopnea, palpitations, nausea or vomiting, constipation or diarrhea, other changes in bowel habits, difficulty with urination, rash or itching, or other new complaints, except as mentioned above. Review of systems is otherwise negative. - Constitutional Vitals: Temp Pulse Resp BP Pulse Ox 98.9 F 78 16 115/62 92 07/03/18 07:27 07/03/18 07:27 07/03/18 07:27 07/03/18 07:27 07/03/18 07:27 General appearance: Present: pleasant, answers questions appropriately Exam: Examination: (Except as mentioned above): General: In no apparent distress. Alert and oriented 3. Nondiaphoretic. Head: Atraumatic and normocephalic. Respiratory: No use of accessory muscles. Lungs are clear throughout. Normal airflow. Cardiovascular: Regular rate and rhythm without murmur appreciated. Abdomen: Bowel sounds are normal. No hepatosplenomegaly mass or tenderness appreciated. Obese and therefore difficult to palpate deeply. Extremities: No cyanosis clubbing or change in edema. He is completely dressed so "blister" at her right pretibial region is not examined. He is obviously still quite edematous, bilaterally. Skin: Warm and non-diaphoretic with no new lesions noted. Internal Medicine: Result - Labs CBC & Chem 7: 07/02/18 05:45 07/03/18 05:25 Labs: BMP 07/03/18 05:25 Sodium 136 Potassium 4.2 Chloride 103 Carbon Dioxide 26 BUN 19 Creatinine 1.02 Glucose 106 H Calcium 8.5 L - ABG Interpretation ABG results: PT/INR, D-dimer PT 20.7 Seconds (9.4-12.1) H 07/03/18 05:25 - VTE Documentation of Mechanical Device: Graduated compression elastic hosiery Consult Discharge Plan - Plan Referrals: Toña Wright DO [Primary Care Provider] -
[2018-07-03] MEDS ORDERED: Furosemide 40 MG TABLET PO ONE (12:30)
[2018-07-03 14:34] LABS: Bilirubin,Urine Negative (Negative); Blood,Urine Trace-intact (Negative); Clarity,Urine Clear (Clear); Color,Urine Yellow (Yellow); Glucose,Urine (UA) Normal (Normal); Ketones,Urine Negative (Negative); Leukocyte Esterase,Urine Small (Negative); Nitrite,Urine Negative (Negative); PH,Urine 6.5 pH Units (5.0-8.0); Protein,Urine Negative (Neg-Trace); Specific Gravity,Urine 1.015 (1.010-1.025); Urobilinogen,Urine Normal (Normal)
[2018-07-03 15:31] LABS: RBC,Urine 0-3 per hpf (0-3)
[2018-07-03] MEDS: Cholecalciferol (D-3) 1,000 UNIT TABLET PO SCH (17:01)
[2018-07-03] MEDS ORDERED: *HR* Warfarin 5 MG TABLET PO ONE (18:00)
[2018-07-03] MEDS: Primidone 50 MG TABLET PO SCH (21:12)
[2018-07-04] MEDS: *HR* Enoxaparin 40 MG/0.4 ML SYRINGE SQ SCH (06:36)
[2018-07-04] MEDS: *HR* HYDROcodone/Acet 10/325 mg TABLET PO PRN ×2 (06:36→10:52)
[2018-07-04 07:14] VITALS: BP 124/69
[2018-07-04 07:14] LABS: INR 1.8; Prothrombin Time 20.6 Seconds (9.4-12.1)
[2018-07-04 07:25] LABS: BUN/Creatinine Ratio 20 (6-26); Blood Urea Nitrogen 19 mg/dL (8-23); Calcium 8.5 mg/dL (8.6-10.3); Carbon Dioxide 31 mEq/L (23-29); Chloride 101 mEq/L (98-107); Glucose 96 mg/dL (70-105); Osmolality,Calculated 284 (280-300); Potassium 3.9 mEq/L (3.5-5.1); Sodium 136 mEq/L (136-145); eGFR For African Americans > 60 (> 60); eGFR For Non-African Americans > 60 (> 60)
[2018-07-04] MEDS ORDERED: Furosemide 40 MG TABLET PO SCH (08:00)
--- NOTE | 2018-07-04 09:53 | Discharge Summary ---
- NOTES TO OUTPATIENT PROVIDER Notes to Outpatient Provider: Recommend patient have follow-up BMP and magnesium within 1 week of discharge, as he was treated for hypokalemia and hypomagnesemia during his stay in rehabilitation. Patient also remains subtherapeutic at time of discharge for his Coumadin with an INR of 1.8. INR is been slowly trending up. Would recommend follow-up INR within 1 week Orders not resulted at time of discharge: Pending orders 07/03/18 12:42 Culture,Urine [RM] Routine 07/05/18 04:00 Prothrombin Time INR [COAG] DAILY 07/06/18 04:00 Prothrombin Time INR [COAG] DAILY 07/07/18 04:00 Basic Metabolic Panel MO Complete Blood Count [HEME] MO Prothrombin Time INR [COAG] DAILY 07/08/18 04:00 Prothrombin Time INR [COAG] DAILY 07/09/18 04:00 Prothrombin Time INR [COAG] DAILY 07/10/18 04:00 Prothrombin Time INR [COAG] DAILY 07/11/18 04:00 Prothrombin Time INR [COAG] DAILY 07/12/18 04:00 Prothrombin Time INR [COAG] DAILY 07/13/18 04:00 Prothrombin Time INR [COAG] DAILY 07/14/18 04:00 Basic Metabolic Panel MO Complete Blood Count [HEME] MO Prothrombin Time INR [COAG] DAILY 07/15/18 04:00 Prothrombin Time INR [COAG] DAILY 07/16/18 04:00 Prothrombin Time INR [COAG] DAILY 07/17/18 04:00 Prothrombin Time INR [COAG] DAILY 07/18/18 04:00 Prothrombin Time INR [COAG] DAILY 07/19/18 04:00 Prothrombin Time INR [COAG] DAILY 07/20/18 04:00 Prothrombin Time INR [COAG] DAILY 07/21/18 04:00 Basic Metabolic Panel MO Complete Blood Count [HEME] MO Prothrombin Time INR [COAG] DAILY 07/22/18 04:00 Prothrombin Time INR [COAG] DAILY 07/23/18 04:00 Prothrombin Time INR [COAG] DAILY 07/24/18 04:00 Prothrombin Time INR [COAG] DAILY 07/25/18 04:00 Prothrombin Time INR [COAG] DAILY 07/26/18 04:00 Prothrombin Time INR [COAG] DAILY 07/27/18 04:00 Prothrombin Time INR [COAG] DAILY 07/28/18 04:00 Basic Metabolic Panel MO Complete Blood Count [HEME] MO 08/04/18 04:00 Basic Metabolic Panel MO Complete Blood Count [HEME] MO 08/11/18 04:00 Basic Metabolic Panel MO Complete Blood Count [HEME] MO 08/18/18 04:00 Basic Metabolic Panel MO Complete Blood Count [HEME] MO 08/25/18 04:00 Basic Metabolic Panel MO Complete Blood Count [HEME] MO 09/01/18 04:00 Basic Metabolic Panel MO Complete Blood Count [HEME] MO Date of Encounter: 07/04/18 Time of Encounter: 09:51 - Discharge Diagnosis (1) Status post total hip replacement, right Priority: Primary Status: Acute Comments: Patient had a right total hip replacement. Surgical incision continues to have a minimal amount of ecchymosis. Surgical incision is intact and appears to be healing well. Moderate edema to bilateral legs with right greater than left. Doppler was done on the right leg which showed negative for DVT. Patient has progressed well with physical therapy. Patient is to continue follow-up with orthopedic surgeon and is to see his primary care physician within one week to have a BMP and INR done. Patient did have issues during his stay of facility with hypokalemia and hypomagnesemia. (2) H/O aortic valve replacement Priority: Secondary Status: Chronic Comments: No acute issues during her stay of facility. Patient continues on Coumadin, but remains subtherapeutic with INR of 1.8. Patient to follow-up with family physician within one week to have INR drawn and managed. (3) Meniere disease Priority: Secondary Status: Chronic Comments: No acute issues during stay of facility. Patient has denied any dizziness. Patient to continue follow-up with PCP Qualifiers: Laterality: unspecified laterality Qualified Code(s): H81.09 - Meniere's disease, unspecified ear (4) Incomplete emptying of bladder Priority: Secondary Status: Acute Comments: Patient continues to have Muñiz catheter in place. Patient has follow-up visit with urology next week for further evaluation and treatment. Hospital course: Mr. Gandhi is a 83 year old male, who was transfered from an [facility] after having a right total hip replacement on 06/23/2018. Patient's surgical recovery at Hospital uneventful, except for issues with urinary retention. Patient experienced urinary retention and difficulty and having Muñiz catheter replaced. Urology was consulted and was able to place a Muñiz catheter which is to remain in place still patient does follow-up in office with urology after discharge. Patient was transferred to this facility for rehabilitation due to deconditioning secondary to surgery. Patient is also had a left total hip replacement in May. During his stay of facility he progressed well with physical therapy. Patient did have issues with edema to lower extremities with his right being greater than left. Doppler was performed which shows negative for DVT. Surgical incision remained intact and appears healthy. Patient was treated for hypokalemia and hypomagnesemia during his stay. Patient was bridged with Lovenox until his INR was therapeutic for his Coumadin, which he takes for his aortic valve replacement. On day of discharge patient remains subtherapeutic with INR 1.8, but continues to gradually trending up. Plan is for patient to be followed by primary care physician within the next week to have his INR taken and repeat his chemistry labs. Patient has follow-up with urology next week. Patient to continue PT/OT as outpatient. Discharge discussed with: patient Time spent discussing smoking cessation with patient: 3 to 10 minutes - Time Spent with Patient Total time spent providing and/or coordinating discharge services: Less than 30 minutes - Discharge Medications Home Medications: Multivitamin [Multivitamins] 1 cap PO DAILY 08/14/17 [History] Primidone [Mysoline] 50 mg PO HS 08/14/17 [History] Cholecalciferol (D-3) [Vitamin D] 1,000 unit PO QPM 05/05/18 [History] Citalopram [CeleXA] 20 mg PO HS 05/05/18 [History] Metoprolol [Lopressor] 25 mg PO BID 05/05/18 [History] Tamsulosin [Flomax] 0.4 mg PO DAILY 05/05/18 [History] Vit A/Vit C/Vit E/Zinc/Copper [Icaps Areds Formula Dr Tablet] 1 tab PO BID 05/05 [History] Enoxaparin [Lovenox] 40 mg SQ Q12HR 10 Days #20 syringe 06/22/18 [Rx] HYDROcodone/Acet 5/325 mg [[place] 5-325 mg] 1 tab PO Q6H PRN 7 Days #28 tab 07/22 /18 [Rx] Ferrous Sulfate [Iron] 325 mg PO DAILY 06/23/18 [History] Warfarin [Coumadin] 3.5 mg PO [id number] 06/23/18 [History] Warfarin [Coumadin] 5 mg PO SUTH 06/23/18 [History] Allergies/Adverse Reactions: 3 Allergy/AdvReac Type Severity Reaction Status Date / Time acetaminophen [From Percocet] AdvReac Irritable Verified 06/23/18 10:27 meperidine [From Demerol] AdvReac Nausea Verified 06/23/18 10:27 Oxycodone [From Percocet] AdvReac Irritable Verified 06/23/18 10:27 Date of admission: 06/26/18 20:11 Primary care physician: Marcelo Murillo Consults: 06/26/18 21:10 Consult to Occupational Therapy [CONS] Routine Comment: Evaluate, develop and implement POC Reason for Consult: eval and treat. s/p RTHR Does patient have active BEDREST order?: No Is patient medically & hemodynamically stable?: Yes Patient assessed for mobility or mobilized this visit?: No Consult to Physical Therapy [CONS] Routine Comment: Evaluate, develop and implement POC Reason for Consult: eval and treat. s/p RTHR Does patient have active BEDREST order?: No Is patient medically & hemodynamically stable?: Yes Patient assessed for mobility or mobilized this visit?: No Consult to Recreational Therapy [CONS] Routine Comment: Evaluate, develop and implement POC Consult to Seal Mixer [CONS] Routine Reason for SW Consult: eval and treat, discharge planning Discharging clinician: Tj Fischer - Constitutional Vitals: Temp Pulse Resp BP Pulse Ox 98.2 F 74 16 124/69 97 07/04/18 07:13 07/04/18 07:13 07/04/18 07:13 07/04/18 07:13 07/04/18 07:13 General appearance: Present: A&O X 3, pleasant, answers questions appropriately - Head Head exam: Present: atraumatic, normocephalic - Eye Eye exam: Present: PERRL, conjuntiva pink, sclera anicteric Pupils: Present: PERRL - Neck Neck exam general surgery: Present: supple, trachea midline. Absent: lymphadenopathy - Respiratory Respiratory exam: Present: CTAB. Absent: accessory muscle use, rales, rhonchi, wheezes - Cardiovascular Cardiovascular exam: Present: RRR, +S1, +S2. Absent: diastolic murmur, gallop, rubs, systolic murmur - GI/Abdominal GI/Abdominal exam: Present: normal bowel sounds, soft, no peritoneal signs. Absent: distended, tenderness - Additional comments: Muñiz catheter remains in place with clear yellow urine received. - Extremities Exam Extremities exam: Present: warm, radial pulses palpable and symmetrical. Absent : calf tenderness, cyanotic, pedal edema Additional comments: Right hip surgical incision appears intact and healthy. +1 edema to bilateral legs with right greater than left. - Neurological Exam Neurological exam: Present: CN II-XII intact, oriented X3, no focal deficits. Absent: pronater drift, facial droop, speech deficit - Skin Skin exam: Present: dry, intact - Patient Status Disposition: Home, Self-Care Condition: Good Functional capacity at discharge: uses cane/walker Overall status at discharge: patient is progressing back to baseline - Discharge Instructions Follow Up With: Chad Damon MD [Partnered Physician] - 07/23/18 8:45 am Toña Barraza, PAC [Physician Nipple Threader] - 07/11/18 8:45 am Toña Wright DO [Primary Care Provider] - - VTE Documentation of Mechanical Device: Graduated compression elastic hosiery
[2018-07-04] MEDS: Multivit/Ca/Min/Fe/FA 1 TAB TABLET PO SCH (10:47)
[2018-07-04] MEDS: ICAPS AREDS PO SCH (10:52)
[2018-07-04] MEDS ORDERED: *HR* Warfarin 7.5 MG TABLET PO ONE (18:00)
== END 2018-07-04 14:40 | disposition home or self-care (01) | DRG 560 ==
LOC: INPGRE 06-26 20:11

== ENCOUNTER 2020-08-18 10:22 | Inpatient (IN) ==
[2020-08-18] MEDS ORDERED: *HR* Warfarin 2.5 MG TABLET PO SCH (15:15)
[2020-08-18] MEDS: *HR* Warfarin 5 MG TABLET PO SCH (16:53)
[2020-08-18] MEDS: Furosemide 40 MG TABLET PO SCH (17:02)
[2020-08-18] MEDS ORDERED: Warfarin perPT PO PRN (18:00)
[2020-08-18] MEDS: ICAPS PO SCH (20:20)
[2020-08-18] MEDS: Primidone 50 MG TABLET PO SCH (20:21)
[2020-08-18] MEDS: Lactobacillus 1 EACH CAP.SPRINK PO SCH (20:21)
[2020-08-19 05:07] LABS: Basophils % 0.2 %; Eosinophils % 0.1 %; Hemoglobin 11.9 g/dL (12.9-16.9); Immature Granulocytes % 1.8 % (0-4); Lymphocytes # 1.3 K/mcL (0.6-4.6); Lymphocytes % 6.1 %; Mean Corpuscular Hemoglobin 35.3 pg (28.0-33.3); Mean Corpuscular Volume 103.9 fL (83.0-100.0); Mean Platelet Volume 9.5 fL (9.4-12.4); Monocytes # 1.1 K/mcL (0.0-1.3); Monocytes % 5.3 %; Neutrophils # 18.6 K/mcL (1.6-8.9); Nucleated Red Blood Cells 0.1 /100 WBC (0); Platelet Count 237 K/mcL (140-400); Red Blood Count 3.37 M/mcL (4.19-5.50); Red Cell Distribution Width 15.3 % (11.5-14.5); Segmented Neutrophils % 86.5 %; White Blood Count 21.5 K/mcL (4.3-11.1)
[2020-08-19 05:14] LABS: INR 2.2; Prothrombin Time 24.9 Seconds (9.4-12.1)
[2020-08-19 05:28] LABS: Albumin 3.6 g/dL (3.5-5.7); Albumin/Globulin Ratio 1.3 (1.1-2.2); Bilirubin,Total 1.6 mg/dL (0.3-1.0); Calcium 11.1 mg/dL (8.6-10.3); Globulin 2.7 g/dL (2.4-3.5); Potassium 3.9 mEq/L (3.5-5.1); Total Protein 6.3 g/dL (6.4-8.9)
[2020-08-19] MEDS: Furosemide 40 MG TABLET PO SCH ×2 (07:57→17:23)
[2020-08-19] MEDS: predniSONE 20 MG TABLET PO SCH (07:57)
[2020-08-19] MEDS: Cholecalciferol (D-3) 1,000 UNIT (25MCG) TABLET PO SCH (07:57)
[2020-08-19] MEDS: Multivit/Ca/Min/Fe/FA 1 TAB TABLET PO SCH (07:57)
[2020-08-19] MEDS: ICAPS PO SCH ×2 (07:58→21:05)
[2020-08-19] MEDS ORDERED: *HR* Warfarin 2.5 MG TABLET PO SCH (15:07)
[2020-08-19] MEDS: Lactobacillus 1 EACH CAP.SPRINK PO SCH (20:44)
[2020-08-19] MEDS: Primidone 50 MG TABLET PO SCH (20:45)
[2020-08-19] MEDS: Acetaminophen 325 MG TABLET PO PRN (21:01)
[2020-08-20 02:34] LABS: Bilirubin,Urine Negative (Negative); Blood,Urine Large (Negative); Clarity,Urine Clear (Clear); Color,Urine Yellow (Yellow); Glucose,Urine (UA) Normal (Normal); Ketones,Urine Negative (Negative); Leukocyte Esterase,Urine Small (Negative); Nitrite,Urine Negative (Negative); PH,Urine 6.5 pH Units (5.0-8.0); Protein,Urine 30 mg/dL (Neg-Trace); Urobilinogen,Urine Normal (Normal)
[2020-08-20 02:43] LABS: Bacteria,Urine Many per hpf (None-Few); RBC,Urine 50-100 per hpf (0-3); Squamous Epithelial Cell,Urine Few per hpf (None-Few)
[2020-08-20 06:12] LABS: Basophils % 0.3 %; Eosinophils # 0.1 K/mcL (0.0-0.6); Eosinophils % 0.6 %; Hematocrit 32.5 % (37.5-50.1); Immature Granulocytes % 2.4 % (0-4); Lymphocytes # 1.5 K/mcL (0.6-4.6); Lymphocytes % 9.8 %; Mean Corpuscular HGB Conc 33.8 g/dL (31.6-35.5); Mean Corpuscular Volume 103.5 fL (83.0-100.0); Mean Platelet Volume 9.7 fL (9.4-12.4); Monocytes % 6.3 %; Platelet Count 229 K/mcL (140-400); Red Blood Count 3.14 M/mcL (4.19-5.50); Red Cell Distribution Width 15.4 % (11.5-14.5); Segmented Neutrophils % 80.6 %; White Blood Count 15.7 K/mcL (4.3-11.1)
[2020-08-20 06:20] LABS: Basophils # 0.1 K/mcL (0.0-0.2); Neutrophils # 12.7 K/mcL (1.6-8.9)
[2020-08-20 06:22] LABS: INR 2.3; Prothrombin Time 25.8 Seconds (9.4-12.1)
[2020-08-20 06:32] LABS: Calcium 10.1 mg/dL (8.6-10.3); Potassium 3.5 mEq/L (3.5-5.1)
[2020-08-20] MEDS: ICAPS PO SCH ×2 (07:51→19:54)
[2020-08-20] MEDS: Furosemide 40 MG TABLET PO SCH ×2 (07:51→17:11)
[2020-08-20] MEDS: Multivit/Ca/Min/Fe/FA 1 TAB TABLET PO SCH (09:07)
[2020-08-20] MEDS: predniSONE 20 MG TABLET PO SCH (09:08)
[2020-08-20] MEDS: Cholecalciferol (D-3) 1,000 UNIT (25MCG) TABLET PO SCH (09:08)
[2020-08-20] MEDS: *HR* Warfarin 5 MG TABLET PO SCH (15:38)
[2020-08-20] MEDS: Primidone 50 MG TABLET PO SCH (19:53)
[2020-08-20] MEDS: Lactobacillus 1 EACH CAP.SPRINK PO SCH (19:53)
[2020-08-20] MEDS: Acetaminophen 325 MG TABLET PO PRN (19:54)
[2020-08-21 05:25] LABS: Basophils % 0.1 %; Eosinophils # 0.1 K/mcL (0.0-0.6); Eosinophils % 0.4 %; Hematocrit 32.6 % (37.5-50.1); Immature Granulocytes % 2.1 % (0-4); Lymphocytes # 1.4 K/mcL (0.6-4.6); Lymphocytes % 9.8 %; Mean Corpuscular HGB Conc 33.7 g/dL (31.6-35.5); Mean Corpuscular Hemoglobin 35.3 pg (28.0-33.3); Mean Corpuscular Volume 104.5 fL (83.0-100.0); Mean Platelet Volume 9.8 fL (9.4-12.4); Monocytes # 0.9 K/mcL (0.0-1.3); Monocytes % 6.4 %; Neutrophils # 11.7 K/mcL (1.6-8.9); Platelet Count 221 K/mcL (140-400); Red Blood Count 3.12 M/mcL (4.19-5.50); Red Cell Distribution Width 15.1 % (11.5-14.5); Segmented Neutrophils % 81.2 %; White Blood Count 14.4 K/mcL (4.3-11.1)
[2020-08-21 05:34] LABS: INR 2.4
[2020-08-21 05:44] LABS: BUN/Creatinine Ratio 34 (6-26); Blood Urea Nitrogen 45 mg/dL (8-23); Calcium 9.4 mg/dL (8.6-10.3); Carbon Dioxide 30 mEq/L (23-29); Chloride 96 mEq/L (98-107); Glucose 175 mg/dL (70-105); Osmolality,Calculated 294 (280-300); Potassium 3.4 mEq/L (3.5-5.1); Sodium 134 mEq/L (136-145); eGFR For African Americans > 60 (> 60); eGFR For Non-African Americans 51 (> 60)
[2020-08-21] MEDS: Furosemide 40 MG TABLET PO SCH ×2 (09:12→16:47)
[2020-08-21] MEDS: Cholecalciferol (D-3) 1,000 UNIT (25MCG) TABLET PO SCH (09:12)
[2020-08-21] MEDS: Multivit/Ca/Min/Fe/FA 1 TAB TABLET PO SCH (09:12)
[2020-08-21] MEDS: ICAPS PO SCH ×2 (09:14→16:56)
[2020-08-21] MEDS: Acetaminophen 325 MG TABLET PO PRN (14:54)
[2020-08-21] MEDS: *HR* Warfarin 5 MG TABLET PO SCH (16:56)
[2020-08-21] MEDS: Primidone 50 MG TABLET PO SCH (20:27)
[2020-08-21] MEDS: Lactobacillus 1 EACH CAP.SPRINK PO SCH (20:27)
[2020-08-22 06:20] LABS: Basophils % 0.3 %; Eosinophils # 0.2 K/mcL (0.0-0.6); Eosinophils % 2.3 %; Hematocrit 33.3 % (37.5-50.1); Hemoglobin 11.2 g/dL (12.9-16.9); Immature Granulocytes % 2.9 % (0-4); Lymphocytes # 1.2 K/mcL (0.6-4.6); Lymphocytes % 11.2 %; Mean Corpuscular HGB Conc 33.6 g/dL (31.6-35.5); Mean Corpuscular Hemoglobin 35.1 pg (28.0-33.3); Mean Corpuscular Volume 104.4 fL (83.0-100.0); Mean Platelet Volume 9.8 fL (9.4-12.4); Monocytes # 0.8 K/mcL (0.0-1.3); Neutrophils # 7.9 K/mcL (1.6-8.9); Platelet Count 234 K/mcL (140-400); Red Blood Count 3.19 M/mcL (4.19-5.50); Red Cell Distribution Width 14.9 % (11.5-14.5); Segmented Neutrophils % 75.3 %; White Blood Count 10.5 K/mcL (4.3-11.1)
[2020-08-22 06:42] LABS: BUN/Creatinine Ratio 30 (6-26); Blood Urea Nitrogen 40 mg/dL (8-23); Calcium 8.9 mg/dL (8.6-10.3); Carbon Dioxide 31 mEq/L (23-29); Chloride 96 mEq/L (98-107); Glucose 192 mg/dL (70-105); Osmolality,Calculated 293 (280-300); Potassium 3.4 mEq/L (3.5-5.1); Sodium 134 mEq/L (136-145); eGFR For African Americans > 60 (> 60); eGFR For Non-African Americans 51 (> 60)
[2020-08-22 06:47] LABS: INR 2.7; Prothrombin Time 30.7 Seconds (9.4-12.1)
[2020-08-22] MEDS: Acetaminophen 325 MG TABLET PO PRN ×2 (08:06→17:01)
[2020-08-22] MEDS: Cholecalciferol (D-3) 1,000 UNIT (25MCG) TABLET PO SCH (08:06)
[2020-08-22] MEDS: Furosemide 40 MG TABLET PO SCH ×2 (08:07→17:00)
[2020-08-22] MEDS: Multivit/Ca/Min/Fe/FA 1 TAB TABLET PO SCH (08:08)
[2020-08-22] MEDS: ICAPS PO SCH ×2 (08:08→17:03)
[2020-08-22] MEDS: Nitrofurantoin (BID) 100 MG CAPSULE PO SCH ×2 (09:57→17:01)
[2020-08-22] MEDS: *HR* Warfarin 5 MG TABLET PO SCH (17:32)
[2020-08-22] MEDS: Primidone 50 MG TABLET PO SCH (21:05)
[2020-08-22] MEDS: Lactobacillus 1 EACH CAP.SPRINK PO SCH (21:05)
[2020-08-23 05:22] LABS: INR 2.4; Prothrombin Time 26.8 Seconds (9.4-12.1)
[2020-08-23] MEDS: Acetaminophen 325 MG TABLET PO PRN ×2 (06:21→17:49)
[2020-08-23] MEDS: Cholecalciferol (D-3) 1,000 UNIT (25MCG) TABLET PO SCH (07:57)
[2020-08-23] MEDS: Nitrofurantoin (BID) 100 MG CAPSULE PO SCH ×2 (07:57→17:25)
[2020-08-23] MEDS: Furosemide 40 MG TABLET PO SCH ×2 (07:57→17:25)
[2020-08-23] MEDS: ICAPS PO SCH ×2 (07:59→17:27)
[2020-08-23] MEDS: *HR* Warfarin 5 MG TABLET PO SCH (17:25)
[2020-08-23] MEDS: Lactobacillus 1 EACH CAP.SPRINK PO SCH (21:24)
[2020-08-23] MEDS: Primidone 50 MG TABLET PO SCH (21:24)
[2020-08-24 05:05] LABS: INR 2.5; Prothrombin Time 28.8 Seconds (9.4-12.1)
[2020-08-24] MEDS: Furosemide 40 MG TABLET PO SCH ×3 (10:06→16:43)
[2020-08-24] MEDS: Nitrofurantoin (BID) 100 MG CAPSULE PO SCH ×2 (10:08→16:43)
[2020-08-24] MEDS: Acetaminophen 325 MG TABLET PO PRN ×2 (10:08→16:43)
[2020-08-24] MEDS: Cholecalciferol (D-3) 1,000 UNIT (25MCG) TABLET PO SCH (10:08)
[2020-08-24] MEDS: ICAPS PO SCH ×2 (10:09→16:45)
[2020-08-24] MEDS: *HR* Warfarin 5 MG TABLET PO SCH (16:43)
[2020-08-24] MEDS: Lactobacillus 1 EACH CAP.SPRINK PO SCH (20:21)
[2020-08-24] MEDS: Primidone 50 MG TABLET PO SCH (20:21)
[2020-08-25] MEDS: Acetaminophen 325 MG TABLET PO PRN ×2 (05:56→21:13)
[2020-08-25 06:14] LABS: Basophils % 0.3 %; Eosinophils # 0.2 K/mcL (0.0-0.6); Eosinophils % 2.7 %; Hematocrit 32.6 % (37.5-50.1); Hemoglobin 10.8 g/dL (12.9-16.9); Immature Granulocytes % 1.9 % (0-4); Lymphocytes # 0.9 K/mcL (0.6-4.6); Lymphocytes % 11.8 %; Mean Corpuscular HGB Conc 33.1 g/dL (31.6-35.5); Mean Corpuscular Hemoglobin 34.6 pg (28.0-33.3); Mean Corpuscular Volume 104.5 fL (83.0-100.0); Monocytes # 0.7 K/mcL (0.0-1.3); Monocytes % 8.7 %; Neutrophils # 5.6 K/mcL (1.6-8.9); Platelet Count 203 K/mcL (140-400); Red Blood Count 3.12 M/mcL (4.19-5.50); Red Cell Distribution Width 14.9 % (11.5-14.5); Segmented Neutrophils % 74.6 %; White Blood Count 7.5 K/mcL (4.3-11.1)
[2020-08-25 06:16] LABS: INR 2.6; Prothrombin Time 29.3 Seconds (9.4-12.1)
[2020-08-25 06:28] LABS: BUN/Creatinine Ratio 23 (6-26); Blood Urea Nitrogen 30 mg/dL (8-23); Calcium 8.8 mg/dL (8.6-10.3); Carbon Dioxide 28 mEq/L (23-29); Chloride 99 mEq/L (98-107); Glucose 167 mg/dL (70-105); Osmolality,Calculated 290 (280-300); Potassium 3.2 mEq/L (3.5-5.1); Sodium 135 mEq/L (136-145); eGFR For African Americans > 60 (> 60); eGFR For Non-African Americans 52 (> 60)
[2020-08-25] MEDS: Nitrofurantoin (BID) 100 MG CAPSULE PO SCH ×2 (07:50→15:59)
[2020-08-25] MEDS: Cholecalciferol (D-3) 1,000 UNIT (25MCG) TABLET PO SCH (07:50)
[2020-08-25] MEDS: Furosemide 40 MG TABLET PO SCH ×2 (07:51→15:59)
[2020-08-25] MEDS: ICAPS PO SCH ×2 (10:19→17:50)
[2020-08-25] MEDS: *HR* Warfarin 5 MG TABLET PO SCH (16:02)
[2020-08-25] MEDS: Primidone 50 MG TABLET PO SCH (21:14)
[2020-08-25] MEDS: Lactobacillus 1 EACH CAP.SPRINK PO SCH (21:14)
[2020-08-26 04:53] LABS: INR 2.7; Prothrombin Time 30.6 Seconds (9.4-12.1)
[2020-08-26 07:07] VITALS: BP 110/73
[2020-08-26] MEDS: Furosemide 40 MG TABLET PO SCH (08:12)
[2020-08-26] MEDS: Cholecalciferol (D-3) 1,000 UNIT (25MCG) TABLET PO SCH (08:12)
[2020-08-26] MEDS: Nitrofurantoin (BID) 100 MG CAPSULE PO SCH (08:13)
[2020-08-26] MEDS: Acetaminophen 325 MG TABLET PO PRN (08:13)
[2020-08-26] MEDS: ICAPS PO SCH (08:16)
== END 2020-08-26 11:40 | disposition home or self-care (01) | DRG 949 ==
LOC: INPGRE 12:41
PROVIDERS: ADMIT Family Medicine; ATTEND Family Medicine